=== PATIENT | male | born 1945 | race Caucasian/White ===

== ENCOUNTER → 2018-10-05 | Outpatient (CLI) | payer OTHER ==
[~2018-10-05] MED LIST: ACET500 PO; ASPI81EC PO; ATOR40TA PO; CLOP75 PO; Coenzyme Q10200 M2 PO; Cyclobenzaprine5 MG PO; DOCU100 PO; FISH1000 PO; HYDCHL25 PO; IBUP600 PO; LEVSOD50 PO; LISHYD1012; LOVA40 PO; MOTION RELIEF25 MG PO; MULTI VITAMIN1 EACH PO; OMEP20ER PO; Percocet 5-3251 EACH PO; SENN187 PO; VICODIN HP 10-1 EACH PO; VITAMIN D35000 UNI1 PO
== END | disposition home or self-care (01) ==
LOC: PLD 11:48 → LAB SHORT 11:48
DX: D22.21 Melanocytic nevi of right ear and external auricular canal (principal)
CPT/HCPCS: 88305

== ENCOUNTER → 2019-10-25 | Outpatient (CLI) | payer OTHER | END | disposition home or self-care (01) | LOC: LAB SHORT 11:46 → PLD 11:46 | DX: D48.5 Neoplasm of uncertain behavior of skin (principal) | CPT/HCPCS: 88305 ==

== ENCOUNTER 2019-11-14 12:37 | Observation (INO) | payer OTHER ==
[~2019-11-14] VITALS: Ht 162.6 cm; Wt 90.5 kg
[~2019-11-14 12:37] MED LIST changes: -VITAMIN D35000 UNI1 PO; +VITAMIN D35000 UNI2 PO
[2019-11-14 13:22] LABS: BASOPHILS ABSOLUTE AUTO 0.09 K/mm3 (0.00-0.23); BASOPHILS PERCENT AUTO 1 % (0-2); EOSINOPHILS ABSOLUTE AUTO 0.13 K/mm3 (0.00-0.68); EOSINOPHILS PERCENT AUTO 1 % (0-6); Hemoglobin 14.8 g/dL (13.5-17.5); IMMATURE GRAN ABSOLUTE AUTO 0.07 K/mm3 (0.00-0.10); IMMATURE GRAN PERCENT AUTO 0 % (0-1); LYMPHOCYTES ABSOLUTE AUTO 1.23 K/mm3 (0.84-5.20); LYMPHOCYTES PERCENT AUTO 8 % (21-46); MONOCYTES ABSOLUTE AUTO 1.29 K/mm3 (0.16-1.47); MONOCYTES PERCENT AUTO 8 % (4-13); Mean Corpuscular HGB 33.8 pg (26.0-34.0); Mean Corpuscular HGB Conc 34.4 g/dL (31.5-36.5); Mean Corpuscular Volume 98 fL (80-100); Mean Platelet Volume 10.1 fL (9.1-12.4); NEUTROPHILS ABSOLUTE AUTO 13.05 K/mm3 (1.96-9.15); NEUTROPHILS PERCENT AUTO 82 % (41-73); Platelet Count 200 K/mm3 (150-400); RDW Coefficient Variation 11.5 % (11.7-14.2); Red Blood Cell Count 4.38 M/mm3 (4.30-5.90); White Blood Cell Count 15.86 K/mm3 (4.00-11.30)
[2019-11-14 13:44] LABS: Alanine Aminotransfer (ALT/SGP 32 U/L (12-78); Albumin, Blood 3.9 g/dL (3.4-5.0); Albumin/Globulin Ratio 1.2 (0.8-1.8); Alk Phos 44 U/L (50-136); Anion Gap 8 mmol/L (6-16); Aspartate Aminotrans (AST/SGOT 26 U/L (12-37); Bilirubin, Total 0.7 mg/dL (0.1-1.0); Blood Urea Nitrogen 22 mg/dL (8-24); Bun/Creatinine Ratio 25.6 (12.0-20.0); CO2, Blood 24 mmol/L (21-32); Calcium, Blood 9.9 mg/dL (8.5-10.1); Chloride, Blood 103 mmol/L (98-108); Creatinine, Blood 0.86 mg/dL (0.60-1.20); Globulin, Blood 3.3 g/dL (2.2-4.0); Glomerular Filtration Rate >60 (60-); Glucose, Blood 96 mg/dL (70-99); Potassium, Blood 3.4 mmol/L (3.5-5.5); Sodium, Blood 135 mmol/L (136-145); Total Protein, Blood 7.2 g/dL (6.4-8.2); Troponin I 0.036 ng/mL (0.000-0.040)
[2019-11-14] MEDS ORDERED: Lisinopril-Hct1 EAC4 PO (18:23)
[2019-11-14] MEDS ORDERED: SYNTHROID75 MCG PO (18:23)
[2019-11-14] MEDS ORDERED: VITAMIN C500 MG PO (20:30)
[2019-11-14] MEDS ORDERED: UBID10 PO (20:31)
[2019-11-14] MEDS ORDERED: TUMERIC PO (20:33)
--- NOTE | 2019-11-14 21:22 | NUR ---
ASSUMED CARE OF PATIENT AT APPROXIMATELY 2024 FROM ED BRYANT Russo PATIENT ARRIVED TO UNIT VIA STRETCHER; TRANSFER FROM ED TO PCU STRETCHER VERBAL CUES. PATIENT DENIES CP/PRESSURE, DIZZINESS, NAUSEA OR LIGHTHEADEDNESS. PATIENT REPORTS HE IS WORRIED ABOUT GETTING A BILL BECAUSE HE WAS ADMITTED OBSERVATION STATUS; REPORTS HE'S NOT SURE IF HE IS GOING TO STAY. NSR ON TELE; OXYGEN SATURATION ABOVE 90% ON ROOM AIR. EDUCATED PATIENT TO CALL BEFORE AMBULATION FOR SAFETY IF DIZZINESS OR CP OCCURS. PATIENT REPORTS AT HOME HE HAD HEAVINESS IN HIS RIGHT SIDE OF HEAD AND HE FEELS IT IS DUE TO LOW BLOOD PRESSURE. ADMISSION COMPLETE. PIV S/L. PATIENT'S IS BEDSIDE. PATIENT CURRENTLY RESTING IN BED; CALL LIGHT IN REACH; BED IN LOWEST POSISTION; WILL CONTINUE TO MONITOR AND ASSESS UNTIL END OF SHIFT.
[2019-11-15] MEDS ORDERED: FAMO20 PO (00:32)
--- NOTE | 2019-11-15 06:17 | NUR ---
PATIENT SLEPT ABOUT EIGHT HOURS LAST NIGHT. VSS. TROPONIN TRENDING BACK DOWN. INDIGESTION RELIEVED WITH PEPCID. WILL CONTINUE TO MONITOR AND ASSESS UNTIL END OF SHIFT.
--- NOTE | 2019-11-15 18:02 | NUR ---
SHIFT NOTE PT HAS BEEN RESTING PAIN FREE T/O THE DAY. PT WAS BEEN INDEPENDANT IN ROOM, USING PHONE IN BED. PT A/O X4 TALKING IN FULL SENTENCES. NO SOB NOTED. PT HAD ECHO TODAY, IS SCHEDULED FOR STRESS TEST TOMORROW PT IS AWARE AND EDUCATED ABOUT STRESS TEST PROCEEDURE TOMORROW. PT DENIES ANY NEEDS OR CONCERNS.
--- NOTE | 2019-11-16 04:42 | NUR ---
SHIFT SUMMARY A/O, ABLE TO MAKE NEEDS KNOWN. COOPERATIVE WITH CARE. ANSWERS QUESTIONS APPROPRIATELY. NO C/O PAIN/DISCOMFORT. TELEMETRY RUNNING SR IN 60'2. NEW 20G IV TO LFA. VSS/AFEBRILE. STATED UNABLE TO REST MUCH OVERNIGHT. BED IN LOWEST POSITION. REMAINS INDEPENDENT IN THE ROOM. CALL LIGHT AND BELONGINGS WITHIN REACH. WCTM. REPORT TO ONCOMING RN.
[2019-11-16 05:57] LABS: Anion Gap 3 mmol/L (6-16); Blood Urea Nitrogen 19 mg/dL (8-24); Bun/Creatinine Ratio 27.1 (12.0-20.0); CO2, Blood 29 mmol/L (21-32); Calcium, Blood 8.7 mg/dL (8.5-10.1); Chloride, Blood 106 mmol/L (98-108); Glomerular Filtration Rate >60 (60-); Glucose, Blood 102 mg/dL (70-99); Potassium, Blood 3.8 mmol/L (3.5-5.5); Sodium, Blood 138 mmol/L (136-145); Troponin I <0.015 ng/mL (0.000-0.040)
[2019-11-16] MEDS ORDERED: POTA10T PO (16:15)
--- NOTE | 2019-11-16 17:30 | NUR ---
PT OTD WITH ALL BELONGINGS. PT EXPRESSED UNDERSTANDING OF NEW MEDICATIONS AND STOPPING OLD MEDICATIONS. PT DENIES ANY FURTHER QUESTIONS OR CONCERNS
== END 2019-11-16 17:27 | disposition home or self-care (01) ==
LOC: ER 12:37 → PCU 12:38
PROVIDERS: Emergency Medicine; ADMIT Internal Medicine
DX: I20.9 Angina pectoris, unspecified (principal); I21.A1 Myocardial infarction type 2; I95.9 Hypotension, unspecified; R55 Syncope and collapse; E87.6 Hypokalemia; E87.1 Hypo-osmolality and hyponatremia; E03.9 Hypothyroidism, unspecified; I10 Essential (primary) hypertension
CPT/HCPCS: 36415; 71046; 78452; 80048; 80053; 84484; 85025; 93005; 93010; 93017; 93306; 96374; 99285-25; A9270-GY; A9500; G0378; J2765; J2785

== ENCOUNTER 2020-06-10 09:14 | Day surgery (SDC) | payer OTHER ==
[~2020-06-10] VITALS: Ht 162.6 cm; Wt 94.0 kg
[~2020-06-10 09:14] MED LIST changes: +FAMO20 PO; +Lisinopril-Hct1 EAC4 PO; +POTA10T PO; +SYNTHROID75 MCG PO; +TUMERIC PO; +UBID10 PO; +VITAMIN C500 MG PO
--- NOTE | 2020-06-10 10:02 | NUR ---
06/10/20 1002 GIANCARLO ROSE ONE ATTEMPT BY JENNIFER IN RH VALVE ONE ATTEMPT BY JENNIFER RFA MISSED ONE SUCCESSFUL BY RN IN RAC PT TOW
== END 2020-06-10 11:30 | disposition home or self-care (01) ==
LOC: ORSCSDS 09:14
DX: R13.14 Dysphagia, pharyngoesophageal phase (principal); K21.9 Gastro-esophageal reflux disease without esophagitis; Z86.73 Personal history of transient ischemic attack (TIA), and cerebral infarction without residual deficits; E66.9 Obesity, unspecified; Z68.35 Body mass index [BMI] 35.0-35.9, adult; Z79.899 Other long term (current) drug therapy
CPT/HCPCS: 82947; 88305; J2704; J7120

== ENCOUNTER → 2021-04-10 | Outpatient (CLI) | payer OTHER | END | disposition home or self-care (01) | LOC: LAB SHORT 18:19 | DX: R31.9 Hematuria, unspecified (principal) | CPT/HCPCS: 87086 ==

== ENCOUNTER 2023-06-06 22:32 | Emergency (ER) | payer OTHER ==
[~2023-06-06] VITALS: Ht 162.6 cm; Wt 92.1 kg
[~2023-06-06 22:32] MED LIST changes: +PANT40 PO; +Prinivil10 MG PO
[2023-06-06 23:11] LABS: BASOPHILS ABSOLUTE AUTO 0.07 K/mm3 (0.00-0.23); BASOPHILS PERCENT AUTO 1 % (0-2); EOSINOPHILS ABSOLUTE AUTO 0.28 K/mm3 (0.00-0.68); EOSINOPHILS PERCENT AUTO 3 % (0-6); Hematocrit 44.3 % (37.0-53.0); Hemoglobin 15.1 g/dL (13.5-17.5); IMMATURE GRAN ABSOLUTE AUTO 0.07 K/mm3 (0.00-0.10); IMMATURE GRAN PERCENT AUTO 1 % (0-1); LYMPHOCYTES ABSOLUTE AUTO 1.97 K/mm3 (0.84-5.20); LYMPHOCYTES PERCENT AUTO 24 % (21-46); MONOCYTES ABSOLUTE AUTO 1.06 K/mm3 (0.16-1.47); MONOCYTES PERCENT AUTO 13 % (4-13); Mean Corpuscular HGB Conc 34.1 g/dL (31.5-36.5); Mean Corpuscular Volume 100 fL (80-100); Mean Platelet Volume 9.8 fL (9.1-12.4); NEUTROPHILS ABSOLUTE AUTO 4.92 K/mm3 (1.96-9.15); NEUTROPHILS PERCENT AUTO 59 % (41-73); Platelet Count 204 K/mm3 (150-400); RDW Coefficient Variation 11.9 % (11.7-14.2); RDW Standard Deviation 43.8 fL (35.1-46.3); Red Blood Cell Count 4.44 M/mm3 (4.30-5.90); White Blood Cell Count 8.37 K/mm3 (4.00-11.30)
[2023-06-06 23:29] LABS: Albumin, Blood 3.5 g/dL (3.4-5.0); Albumin/Globulin Ratio 1.1 (0.8-1.8); Bilirubin, Total 0.4 mg/dL (0.1-1.0); Bun/Creatinine Ratio 13.1 (12.0-20.0); Calcium, Blood 8.6 mg/dL (8.5-10.1); Creatinine, Blood 0.84 mg/dL (0.60-1.20); Globulin, Blood 3.2 g/dL (2.2-4.0); Potassium, Blood 4.3 mmol/L (3.5-5.5); Total Protein, Blood 6.7 g/dL (6.4-8.2)
[2023-06-07 00:40] VITALS: BP 129/85
== END 2023-06-07 00:44 | disposition home or self-care (01) ==
LOC: ER 22:32
PROVIDERS: Student in an Organized Health Care Education/Training Program
DX: R19.7 Diarrhea, unspecified (principal); R10.31 Right lower quadrant pain; Z79.899 Other long term (current) drug therapy; I10 Essential (primary) hypertension
CPT/HCPCS: 80053; 85025; 99284

== ENCOUNTER 2024-04-07 06:06 | Day surgery (SDC) | payer OTHER ==
[~2024-04-07] VITALS: Ht 162.6 cm; Wt 93.3 kg
[2024-04-07] MEDS ORDERED: Lactated Ringer's 1,000 ML IV ONE ×2 (06:09→07:18)
[2024-04-07] MEDS ORDERED: OxyCODONE HCL 10 MG TABCR PO SCH (06:41)
[2024-04-07] MEDS ORDERED: NS 50 ML IV ONE (06:41)
[2024-04-07] MEDS ORDERED: CeFAZolin Sodium 2,000 MG in NS 100 ML IV SCH (06:41)
[2024-04-07] MEDS ORDERED: CeFAZolin Sodium 2,000 MG VIAL ONE (06:41)
[2024-04-07] MEDS ORDERED: OxyCODONE HCL 10 MG TABCR ONE (06:41)
[2024-04-07] MEDS ORDERED: FentaNYL Citrate 50 MCG/ML 2 ML Injection ONE (07:01)
[2024-04-07] MEDS ORDERED: Dexamethasone Sod Phos 10 MG/ML 1ML VIAL ONE (07:01)
[2024-04-07] MEDS ORDERED: Phenylephrine HCl 100 MCG/ML-NS 10MLSYR (1MG/10ML) ONE (07:01)
[2024-04-07] MEDS ORDERED: FARXIGA10 MG PO (07:01)
[2024-04-07] MEDS ORDERED: Ondansetron HCl 2 MG / ML 2ML Vial ONE (07:01)
[2024-04-07] MEDS ORDERED: propofoL 20 ML IV ONE (07:01)
[2024-04-07] MEDS ORDERED: CALCIUM LACTAT100 M1 (07:02)
[2024-04-07] MEDS ORDERED: OLMESARTAN MEDO20 MG PO (07:02)
[2024-04-07] MEDS ORDERED: Ropivacaine 0.5% HCL/PF 5 MG/ML 30ML Vial ONE (07:04)
[2024-04-07] MEDS ORDERED: Acetaminophen 500 MG Tab PO SCH (07:05)
[2024-04-07] MEDS ORDERED: Acetaminophen 500 MG Tab ONE (07:05)
[2024-04-07] MEDS ORDERED: Tranexamic Acid 100 ML IV SCH (07:15)
[2024-04-07] MEDS ORDERED: Ropivacaine 0.5% HCl/Pf 123.125 MG,EPINEPHrine HCL 0.25 MG,Ketorolac Tromethamine 15 MG... INFIL SCH (07:15)
[2024-04-07] MEDS ORDERED: Chlorhexidine Mouth Care 15 ML UDC MT SCH (07:15)
[2024-04-07] MEDS ORDERED: Tranexamic Acid 100 ML IV ONE (07:23)
--- NOTE | 2024-04-07 07:46 | NUR ---
04/07/24 0746 Payton Kwon ORAL RINSE AND NASAL SWABS COMPLETE PER ORDERS
[2024-04-07] MEDS ORDERED: Rocuronium Bromide 10 MG/ML 5ML Injection IV ONE (07:49)
[2024-04-07] MEDS ORDERED: ePHEDrine Sulfate 50 MG/ML 1ML Injection ONE (08:08)
[2024-04-07] MEDS ORDERED: Sugammadex Sodium 200 MG/2ML SDV (100 MG/ML) ONE (09:45)
[2024-04-10 10:35] VITALS: BP 97/66
--- NOTE | 2024-04-10 10:36 | NUR ---
04/10/24 1036 OUMOU ZAMBRANO LATE ENTRY CHARTING D/T COMPUTER SYSTEM FAILURE FACILITY WIDE
== END 2024-04-07 12:15 | disposition home or self-care (01) ==
LOC: ORSCSDS 06:06
PROVIDERS: Orthopaedic Surgery
PROC: 0RRJ00Z Replacement of Right Shoulder Joint with Reverse Ball and Socket Synthetic Substitute, Open Approach (ICD-10-PCS; principal; 2024-04-07 07:30)
DX: M12.811 Other specific arthropathies, not elsewhere classified, right shoulder (principal); I10 Essential (primary) hypertension; E11.9 Type 2 diabetes mellitus without complications; E03.9 Hypothyroidism, unspecified; Z86.73 Personal history of transient ischemic attack (TIA), and cerebral infarction without residual deficits; Z79.02 Long term (current) use of antithrombotics/antiplatelets; E66.01 Morbid (severe) obesity due to excess calories; Z68.35 Body mass index [BMI] 35.0-35.9, adult; I27.20 Pulmonary hypertension, unspecified; K21.9 Gastro-esophageal reflux disease without esophagitis; Z79.899 Other long term (current) drug therapy
CPT/HCPCS: 73030; 82947; A9270; C1713; C1776; J0171; J0690; J0735; J1100; J1885; J2371; J2405; J2704; J2795; J3010; J7120

== ENCOUNTER → 2024-07-11 | Outpatient (CLI) | payer OTHER ==
[~2024-07-11] MED LIST changes: +CALCIUM LACTAT100 M1; +FARXIGA10 MG PO; +OLMESARTAN MEDO20 MG PO
[2024-07-11 15:32] LABS: Source, Urine Clean Catch
[2024-07-11 17:24] LABS: Appearance, Urine Clear (Clear); Bilirubin, Urine Neg (Neg); Blood, Urine Neg (Neg); Glucose Qualitative, Urine Neg (Neg); Ketones, Urine Neg (Neg); Leukocyte Esterase, Urine Neg (Neg); Nitrite, Urine Neg (Neg); Protein, Urine Neg (Neg); Specific Gravity, Urine 1.005 (1.003-1.022); Urobilinogen, Urine NORM (Normal)
[2024-07-11 17:47] LABS: Color, Urine Pale Yellow (P-Yellow)
== END ==
LOC: LAB SHORT 15:29 → LAB 15:29
PROVIDERS: Nurse Practitioner Family
DX: R30.0 Dysuria (principal)
CPT/HCPCS: 81003

== ENCOUNTER 2024-09-08 06:14 | Day surgery (SDC) | payer OTHER ==
[~2024-09-08] VITALS: Ht 162.6 cm; Wt 95.8 kg
[2024-09-08] MEDS ORDERED: propofoL 20 ML IV ONE (06:51)
[2024-09-08] MEDS ORDERED: Rocuronium Bromide 10 MG/ML 5ML Injection IV ONE ×2 (06:51→08:19)
[2024-09-08] MEDS ORDERED: Ondansetron HCl 2 MG / ML 2ML Vial ONE (06:51)
[2024-09-08] MEDS ORDERED: Metoclopramide HCl 5MG / ML 2ML Vial ONE (06:51)
[2024-09-08] MEDS ORDERED: HYDROmorphone HCl/Pf 1MG SYR ONE (06:51)
[2024-09-08] MEDS ORDERED: Bupivacaine HCl 0.25% 50 ML Vial ONE (06:56)
[2024-09-08] MEDS ORDERED: Midazolam HCl 1MG / ML 2ML Vial ONE (06:56)
[2024-09-08] MEDS ORDERED: Tranexamic Acid 100 ML IV SCH (07:00)
[2024-09-08] MEDS ORDERED: Ropivacaine 0.5% HCl/Pf 123.125 MG,EPINEPHrine HCL 0.25 MG,Ketorolac Tromethamine 15 MG... INFIL SCH (07:00)
[2024-09-08] MEDS ORDERED: Acetaminophen 500 MG Tab ONE (07:03)
[2024-09-08] MEDS ORDERED: CeFAZolin Sodium 2,000 MG VIAL ONE (07:04)
[2024-09-08] MEDS ORDERED: NS 0 ML IV ONE (07:04)
[2024-09-08] MEDS ORDERED: Tranexamic Acid 100 ML IV ONE (07:16)
[2024-09-08] MEDS ORDERED: Lactated Ringer's 1,000 ML IV ONE ×4 (07:35→11:53)
--- NOTE | 2024-09-08 07:44 | NUR ---
09/08/24 0744 TARUN NAIK 0715 TIMEOUT FOR POPLITEAL BLOCK PERFORMED AT BEDSIDE WITH DR. CHRISTIANO LUNDBERG, PATIENT, AND THIS RN. SPO2 MONITORED THROUGHOUT, 2LNC APPLIED, SATS 92-95 DURING PROCEDURE. PROCEDURE START [id number]-END [id number]. BLOCK COMPLETED WITH NO COMPLICATIONS.
[2024-09-08] MEDS ORDERED: ePHEDrine Sulfate 50 MG/ML 1ML Injection ONE (08:01)
[2024-09-08] MEDS ORDERED: Sugammadex Sodium 200 MG/2ML SDV (100 MG/ML) ONE (09:11)
[2024-09-08] MEDS ORDERED: FentaNYL Citrate 50 MCG/ML 2 ML Injection ONE ×2 (10:36→10:39)
[2024-09-08] MEDS ORDERED: OxyCODONE 5 mg/Acetamin 325 mg TABLET ONE (10:38)
[2024-09-08 11:17] VITALS: BP 109/61
== END 2024-09-08 11:20 | disposition home or self-care (01) ==
LOC: ORSCSDS 06:14
DX: M19.171 Post-traumatic osteoarthritis, right ankle and foot (principal); M65.871 Other synovitis and tenosynovitis, right ankle and foot; M25.571 Pain in right ankle and joints of right foot; I10 Essential (primary) hypertension; E78.5 Hyperlipidemia, unspecified; E03.9 Hypothyroidism, unspecified; Z79.899 Other long term (current) drug therapy; Z96.653 Presence of artificial knee joint, bilateral; K21.9 Gastro-esophageal reflux disease without esophagitis; Z86.73 Personal history of transient ischemic attack (TIA), and cerebral infarction without residual deficits; Z85.46 Personal history of malignant neoplasm of prostate; Z79.02 Long term (current) use of antithrombotics/antiplatelets
CPT/HCPCS: 82947; A9270; C1713; C1776; J0171; J0690; J0735; J1171; J1885; J2250; J2405; J2704; J2765; J2795; J3010; J7120